=== PATIENT | male | born 1995 | race Caucasian/White ===

== ENCOUNTER 2020-10-14 19:03 | Emergency (ER) | payer SELFPAY ==
[~2020-10-14] VITALS: Ht 162.6 cm; Wt 64.0 kg
[2020-10-14 19:05] VITALS: BP 145/83
[2020-10-14] MEDS ORDERED: KEPP500 PO (19:08)
== END 2020-10-14 19:50 | disposition home or self-care (01) ==
LOC: ER 19:03
DX: G40.909 Epilepsy, unspecified, not intractable, without status epilepticus (principal)
CPT/HCPCS: 99281

== ENCOUNTER 2021-01-21 12:01 | Emergency (ER) | payer SELFPAY ==
[~2021-01-21] VITALS: Ht 167.6 cm; Wt 73.0 kg
[~2021-01-21 12:01] MED LIST: KEPP500 PO
[2021-01-21 12:16] VITALS: BP 123/69
[2021-01-21] MEDS ORDERED: LEVETIRACETAM 500MG TABLET PO ONE (12:30)
[2021-01-21] MEDS ORDERED: KEPP500 MT (12:46)
== END 2021-01-21 12:51 | disposition home or self-care (01) ==
LOC: ER 12:01
DX: R56.9 Unspecified convulsions (principal); Z76.0 Encounter for issue of repeat prescription
CPT/HCPCS: 99283

== ENCOUNTER 2021-02-17 09:27 | Emergency (ER) | payer SELFPAY ==
[~2021-02-17] VITALS: Ht 172.7 cm; Wt 68.0 kg
[~2021-02-17 09:27] MED LIST changes: +KEPP500 MT
[2021-02-17 10:29] LABS: BASOPHILS % 0.6 % (0.0-2.0); HEMATOCRIT. 47.1 % (42.0-52.0); HEMOGLOBIN. 16.4 g/dL (14.0-18.0); LYMPHOCYTES % 26.5 % (20.0-50.0); MEAN CORPUSCULAR HEMOGLOBIN 31.8 pg (28.0-32.0); MEAN CORPUSCULAR VOLUME 91.5 fL (80.0-94.0); MEAN PLATELET VOLUME 8.2 fl (7.4-10.4); MONOCYTES % 8.1 % (2.0-8.0); NEUTROPHILS % 64.8 % (40.0-76.0); PLATELET 167 x1000/uL (130-400); RED BLOOD CELL COUNT 5.15 mill/uL (4.7-6.1); RED CELL DISTRIBUTION WIDTH 13.3 % (11.6-14.6)
[2021-02-17 10:33] LABS: CHLORIDE 108 mEq/L (98-107)
[2021-02-17 11:00] VITALS: BP 124/90
== END 2021-02-17 11:39 | disposition home or self-care (01) ==
LOC: ER 09:27
DX: R56.9 Unspecified convulsions (principal); Z02.79 Encounter for issue of other medical certificate
CPT/HCPCS: 36415; 80053; 85025; 93005; 99285